=== PATIENT | female | born 1955 | race Two or more races ===

== ENCOUNTER → 2017-06-22 | Emergency (ER) | payer OTHER ==
[~2017-06-22] VITALS: Ht 154.9 cm; Wt 91.6 kg
[~2017-06-22] MED LIST: BAYER WOMEN'S1 EACH; COZAAR25 MG
== END | disposition home or self-care (01) ==
LOC: ER 15:35
DX: S80.01XA Contusion of right knee, initial encounter (principal); S16.1XXA Strain of muscle, fascia and tendon at neck level, initial encounter; S49.91XA Unspecified injury of right shoulder and upper arm, initial encounter; S79.911A Unspecified injury of right hip, initial encounter; M62.838 Other muscle spasm; M12.561 Traumatic arthropathy, right knee; W18.09XA Striking against other object with subsequent fall, initial encounter; Y93.89 Activity, other specified; Y92.213 High school as the place of occurrence of the external cause; Y99.8 Other external cause status

== ENCOUNTER 2021-06-26 07:33 | Outpatient (CLI) | payer OTHER | END 2021-06-26 07:34 | disposition home or self-care (01) | LOC: NUCLEAR 07:33 | DX: E05.00 Thyrotoxicosis with diffuse goiter without thyrotoxic crisis or storm (principal) ==